=== PATIENT | female | born 1950 | race Caucasian/White ===

== ENCOUNTER 2022-03-21 16:01 | Emergency (ER) | payer MEDICARE, OTHER ==
[~2022-03-21] VITALS: Ht 160 cm; Wt 65.9 kg
[~2022-03-21 16:01] MED LIST: ESTROGEN CREAM; PRINIVIL10 MG PO
[2022-03-21 16:25] VITALS: TEMP 98
[2022-03-21] MEDS ORDERED: COZAAR 50MG50 MG/TAB PO (16:42)
[2022-03-21 17:16] VITALS: BP 153/81; PULSE 78
== END 2022-03-21 17:16 | disposition home or self-care (01) ==
LOC: COL.ER 16:01
DX: S52.501A Unspecified fracture of the lower end of right radius, initial encounter for closed fracture (principal); V18.4XXA Pedal cycle driver injured in noncollision transport accident in traffic accident, initial encounter; Y93.55 Activity, bike riding; Y92.410 Unspecified street and highway as the place of occurrence of the external cause